=== PATIENT | female | born 1950 | race Caucasian/White ===

== ENCOUNTER 2023-11-01 07:43 | Emergency (ER) | payer MEDICARE ==
[~2023-11-01] VITALS: Ht 157.5 cm; Wt 54.4 kg
[2023-11-01 08:06] VITALS: BP 118/80; TEMP 98; O2SAT 99
== END 2023-11-01 08:07 | disposition home or self-care (01) ==
LOC: ER 07:51
DX: T16.9XXA Foreign body in ear, unspecified ear, initial encounter (principal); K21.9 Gastro-esophageal reflux disease without esophagitis; F41.9 Anxiety disorder, unspecified; Z88.1 Allergy status to other antibiotic agents; Y92.89 Other specified places as the place of occurrence of the external cause
CPT/HCPCS: A4606; A4663

== ENCOUNTER 2024-02-07 13:59 | Emergency (ER) | payer MEDICARE ==
[~2024-02-07] VITALS: Ht 157.5 cm; Wt 46.7 kg
[2024-02-07 14:52] LABS: BASOPHILS # (AUTO) 0.1 K/UL (0.0-0.2); BASOPHILS % (AUTO) 0.8 % (0.0-2.0); EOSINOPHILS % (AUTO) 0.2 % (0.0-7.0); HEMATOCRIT 42.2 % (31.2-41.9); LYMPHOCYTES # (AUTO) 1.9 K/uL (0.8-4.8); LYMPHOCYTES % (AUTO) 24.4 % (20.5-51.5); MEAN CORPUSCULAR HEMOGLOBIN 30.5 uug (24.7-32.8); MEAN CORPUSCULAR HGB CONC 33 g/dL (32.3-35.6); MEAN CORPUSCULAR VOLUME 91.8 fL (75.5-95.3); MONOCYTES # (AUTO) 0.3 K/uL (0.1-1.30); MONOCYTES % (AUTO) 3.5 % (0.0-11.0); NEUTROPHILS # (AUTO) 5.6 K/uL (1.8-8.9); NEUTROPHILS % (AUTO) 71.1 % (38.5-71.5); PLATELET COUNT (AUTO) 353 K/uL (179-408); RED BLOOD CELL COUNT(AUTO) 4.59 MIL/uL (3.63-4.92); RED CELL DISTRIBUTION WIDTH 13.5 % (12.3-17.7); WHITE BLOOD COUNT (AUTO) 7.8 K/uL (3.8-11.8)
[2024-02-07 15:10] LABS: DIFFERENTIAL COMMENT 1
[2024-02-07 15:15] LABS: ALANINE AMINOTRANSFERASE 17 U/L (14-59); ALBUMIN 4.1 g/dL (3.4-5.0); ALKALINE PHOSPHATASE 100 U/L (50-136); ASPARTATE AMINOTRANSFERASE 31 U/L (15-37); BILIRUBIN,DIRECT 0.1 mg/dL (0.0-0.2); BILIRUBIN,TOTAL 0.4 mg/dL (0.2-1.0); CALCIUM 8.9 mg/dL (8.5-10.1); CARBON DIOXIDE 24 mmol/L (21-32); CHLORIDE 105 mmol/L (98-107); CREATININE 0.8 mg/dL (0.6-1.3); GLUCOSE 113 mg/dL (74-106); SODIUM SERUM 142 mmol/L (136-145); TOTAL PROTEIN, SERUM 7.7 g/dL (6.4-8.2); UREA NITROGEN, BLOOD 17 mg/dL (7-18)
[2024-02-07 15:17] LABS: *BILIRUBIN,URIN NEGATIVE (NEGATIVE); *BLOOD, URINE NEGATIVE (NEGATIVE); *COLOR,URINE YELLOW (YELLOW); *KETONES,URINE NEGATIVE (NEGATIVE); *PROTEIN,URINE NEGATIVE (NEGATIVE); *UROBILINOGEN,URINE 0.2 E.U./dl (NORMAL); LEUKOCYTE ESTERASE ,URINE TRACE (NEGATIVE); NITRITE, URINE NEGATIVE (NEGATIVE); PH,URINE 6.5 (5.0-8.0); UGLUCOSE NEGATIVE (NEGATIVE)
[2024-02-07 15:22] LABS: *CLARITY,URINE HAZY (CLEAR)
[2024-02-07 15:25] LABS: BACTERIA,URINE FEW /HPF (NONE SEEN); SQUAMOUS EPITHELIAL CELL,UR FEW /HPF (NONE SEEN)
[2024-02-07 16:21] VITALS: BP 133/86; O2SAT 96
== END 2024-02-07 16:34 ==
LOC: ER 14:00
DX: S09.8XXA Other specified injuries of head, initial encounter (principal); R55 Syncope and collapse; K21.9 Gastro-esophageal reflux disease without esophagitis; Z20.822 Contact with and (suspected) exposure to COVID-19; Z88.1 Allergy status to other antibiotic agents; W18.39XA Other fall on same level, initial encounter; Y93.89 Activity, other specified; Y92.89 Other specified places as the place of occurrence of the external cause; Y99.8 Other external cause status
CPT/HCPCS: 36415; 70450; 71045; 72125; 83605; 84484; 85025; 85730; 87040; 93005; A4606; A4663

== ENCOUNTER 2024-02-16 16:36 | Emergency (ER) | payer MEDICARE ==
[~2024-02-16] VITALS: Ht 157.5 cm; Wt 46.7 kg
[2024-02-16 17:59] VITALS: BP 122/78; TEMP 97; O2SAT 99
== END 2024-02-16 17:59 | disposition home or self-care (01) ==
LOC: ER 16:38
DX: S00.83XA Contusion of other part of head, initial encounter (principal); K21.9 Gastro-esophageal reflux disease without esophagitis; R55 Syncope and collapse; Z88.2 Allergy status to sulfonamides; W18.39XA Other fall on same level, initial encounter; Y93.89 Activity, other specified; Y92.89 Other specified places as the place of occurrence of the external cause; Y99.8 Other external cause status
CPT/HCPCS: 70450; A4606; A4663

== ENCOUNTER 2024-02-24 06:56 | Emergency (ER) | payer MEDICARE ==
[~2024-02-24] VITALS: Ht 157.5 cm; Wt 45.4 kg
[2024-02-24 07:58] LABS: BASOPHILS # (AUTO) 0.1 K/UL (0.0-0.2); BASOPHILS % (AUTO) 0.9 % (0.0-2.0); EOSINOPHILS % (AUTO) 0.8 % (0.0-7.0); HEMATOCRIT 40.1 % (31.2-41.9); HEMOGLOBIN 13.7 g/dL (10.9-14.3); LYMPHOCYTES # (AUTO) 1.8 K/uL (0.8-4.8); MEAN CORPUSCULAR HEMOGLOBIN 31.5 uug (24.7-32.8); MEAN CORPUSCULAR HGB CONC 34 g/dL (32.3-35.6); MONOCYTES # (AUTO) 0.4 K/uL (0.1-1.30); MONOCYTES % (AUTO) 6.4 % (0.0-11.0); NEUTROPHILS # (AUTO) 3.9 K/uL (1.8-8.9); NEUTROPHILS % (AUTO) 62.9 % (38.5-71.5); PLATELET COUNT (AUTO) 383 K/uL (179-408); RED BLOOD CELL COUNT(AUTO) 4.36 MIL/uL (3.63-4.92); WHITE BLOOD COUNT (AUTO) 6.1 K/uL (3.8-11.8)
[2024-02-24 08:00] LABS: DIFFERENTIAL COMMENT 1
[2024-02-24 08:19] LABS: CALCIUM 9.3 mg/dL (8.5-10.1); CREATININE 0.8 mg/dL (0.6-1.3); POTASSIUM 3.9 mmol/L (3.5-5.1)
[2024-02-24 08:25] LABS: THYROID STIMULATING HORMONE 3.359 mIU/mL (0.358-3.740)
[2024-02-24 09:58] VITALS: BP 137/78; TEMP 98.3; O2SAT 97
== END 2024-02-24 09:59 | disposition home or self-care (01) ==
LOC: ER 07:07
DX: S09.8XXA Other specified injuries of head, initial encounter (principal); K21.9 Gastro-esophageal reflux disease without esophagitis; Z88.2 Allergy status to sulfonamides; W22.8XXA Striking against or struck by other objects, initial encounter; Y93.89 Activity, other specified; Y92.89 Other specified places as the place of occurrence of the external cause; Y99.8 Other external cause status
CPT/HCPCS: 36415; 70450; 84443; 85025; A4606; A4663

== ENCOUNTER 2024-03-21 16:29 | Emergency (ER) | payer MEDICARE, OTHER ==
[~2024-03-21] VITALS: Ht 152.4 cm; Wt 49.9 kg
[2024-03-21 16:32] VITALS: O2SAT 98
[2024-03-21] MEDS ORDERED: MIRT7.5T10 PO (16:52)
[2024-03-21] MEDS ORDERED: DIGO250T PO (16:52)
[2024-03-21] MEDS ORDERED: TRAZ-257 PO (16:52)
[2024-03-21] MEDS ORDERED: RAME8TAB24 PO (16:52)
[2024-03-21] MEDS ORDERED: FINA5TAB11 PO (16:52)
[2024-03-21] MEDS ORDERED: DARI7.5T17 PO (16:52)
[2024-03-21] MEDS ORDERED: ALPR0.5T8 PO (16:52)
[2024-03-21] MEDS ORDERED: CARB1TAB21 PO (16:52)
[2024-03-21] MEDS ORDERED: METO-356 PO (16:52)
== END 2024-03-21 17:49 | disposition home or self-care (01) ==
LOC: ER 16:34
DX: S30.0XXA Contusion of lower back and pelvis, initial encounter (principal); M75.31 Calcific tendinitis of right shoulder; K21.9 Gastro-esophageal reflux disease without esophagitis; Z79.899 Other long term (current) drug therapy; Z88.2 Allergy status to sulfonamides; W18.39XA Other fall on same level, initial encounter; Y93.89 Activity, other specified; Y92.89 Other specified places as the place of occurrence of the external cause; Y99.8 Other external cause status
CPT/HCPCS: 70450; 72125; 73020; 73502; 73560; A4606; A4663

== ENCOUNTER 2024-04-21 12:22 | Emergency (ER) | payer MEDICARE, OTHER ==
[~2024-04-21] VITALS: Ht 160 cm; Wt 45.8 kg
[~2024-04-21 12:22] MED LIST: ALPR0.5T8 PO; CARB1TAB21 PO; DARI7.5T17 PO; DIGO250T PO; FINA5TAB11 PO; METO-356 PO; MIRT7.5T10 PO; RAME8TAB24 PO; TRAZ-257 PO
[2024-04-21] MEDS ORDERED: ONDA4TAB5 PO (14:05)
[2024-04-21] MEDS ORDERED: ACET-2605 PO (14:07)
[2024-04-21 14:28] VITALS: BP 131/72; TEMP 98.2; O2SAT 97
== END 2024-04-21 15:12 | disposition home or self-care (01) ==
LOC: ER 12:22
DX: S00.83XA Contusion of other part of head, initial encounter (principal); K21.9 Gastro-esophageal reflux disease without esophagitis; Z79.1 Long term (current) use of non-steroidal anti-inflammatories (NSAID); Z79.899 Other long term (current) drug therapy; Z88.2 Allergy status to sulfonamides; W22.8XXA Striking against or struck by other objects, initial encounter; Y93.89 Activity, other specified; Y92.89 Other specified places as the place of occurrence of the external cause; Y99.8 Other external cause status
CPT/HCPCS: 70450; A4606; A4663

== ENCOUNTER 2024-05-16 17:09 | Emergency (ER) | payer MEDICARE, MEDICAID ==
[~2024-05-16] VITALS: Ht 157.5 cm; Wt 45.4 kg
[~2024-05-16 17:09] MED LIST changes: +ACET-2605 PO; +ONDA4TAB5 PO
[2024-05-16 17:32] LABS: *BILIRUBIN,URIN NEGATIVE (NEGATIVE); *BLOOD, URINE NEGATIVE (NEGATIVE); *CLARITY,URINE CLEAR (CLEAR); *COLOR,URINE YELLOW (YELLOW); *KETONES,URINE NEGATIVE (NEGATIVE); *PROTEIN,URINE NEGATIVE (NEGATIVE); *UROBILINOGEN,URINE 0.2 E.U./dl (NORMAL); NITRITE, URINE NEGATIVE (NEGATIVE); UGLUCOSE NEGATIVE (NEGATIVE)
[2024-05-16 17:39] LABS: LEUKOCYTE ESTERASE ,URINE 1+ (NEGATIVE); RBC,URINE 0-3 /HPF (0-3)
[2024-05-16 17:50] LABS: BASOPHILS # (AUTO) 0.1 K/UL (0.0-0.2); BASOPHILS % (AUTO) 0.7 % (0.0-2.0); EOSINOPHILS % (AUTO) 0.3 % (0.0-7.0); HEMATOCRIT 37.8 % (31.2-41.9); HEMOGLOBIN 12.5 g/dL (10.9-14.3); LYMPHOCYTES % (AUTO) 24.3 % (20.5-51.5); MEAN CORPUSCULAR HGB CONC 33 g/dL (32.3-35.6); MEAN CORPUSCULAR VOLUME 93.9 fL (75.5-95.3); MONOCYTES # (AUTO) 0.7 K/uL (0.1-1.30); MONOCYTES % (AUTO) 8.5 % (0.0-11.0); NEUTROPHILS # (AUTO) 5.4 K/uL (1.8-8.9); NEUTROPHILS % (AUTO) 66.2 % (38.5-71.5); PLATELET COUNT (AUTO) 360 K/uL (179-408); RED BLOOD CELL COUNT(AUTO) 4.03 MIL/uL (3.63-4.92); RED CELL DISTRIBUTION WIDTH 14.2 % (12.3-17.7); WHITE BLOOD COUNT (AUTO) 8.2 K/uL (3.8-11.8)
[2024-05-16 18:14] LABS: CALCIUM 9.5 mg/dL (8.5-10.1); CREATININE 0.8 mg/dL (0.6-1.3); POTASSIUM 3.9 mmol/L (3.5-5.1)
[2024-05-16 18:21] LABS: DIFFERENTIAL COMMENT 1
[2024-05-16 18:45] LABS: MAGNESIUM 2.1 mg/dL (1.8-2.4)
[2024-05-16] MEDS ORDERED: NITR100C6 PO (19:03)
[2024-05-16 19:08] VITALS: BP 129/71; O2SAT 97
== END 2024-05-16 19:08 | disposition home or self-care (01) ==
LOC: ER 17:10
DX: R35.0 Frequency of micturition (principal); N32.81 Overactive bladder; N39.0 Urinary tract infection, site not specified; K21.9 Gastro-esophageal reflux disease without esophagitis; Z79.1 Long term (current) use of non-steroidal anti-inflammatories (NSAID); Z79.899 Other long term (current) drug therapy; Z88.2 Allergy status to sulfonamides
CPT/HCPCS: 36415; 83735; 85025; A4606; A4663

== ENCOUNTER 2024-05-28 13:18 | Emergency (ER) | payer MEDICARE, MEDICAID ==
[~2024-05-28] VITALS: Ht 157.5 cm; Wt 46.7 kg
[~2024-05-28 13:18] MED LIST changes: +NITR100C6 PO
[2024-05-28] MEDS ORDERED: ATOR10TA PO (13:34)
[2024-05-28] MEDS ORDERED: METO25TA3 PO (13:34)
[2024-05-28] MEDS ORDERED: LIDOCAINE 5% PATCH TD ONE (13:57)
[2024-05-28] MEDS: LIDOCAINE 5% PATCH TD ONE (14:00)
[2024-05-28] MEDS ORDERED: LIDO30AD10 TP (14:06)
[2024-05-28 14:12] VITALS: BP 121/71; TEMP 98; O2SAT 96
== END 2024-05-28 14:12 | disposition home or self-care (01) ==
LOC: ER 13:19
DX: M43.6 Torticollis (principal); K21.9 Gastro-esophageal reflux disease without esophagitis; Z79.1 Long term (current) use of non-steroidal anti-inflammatories (NSAID); Z79.899 Other long term (current) drug therapy; Z88.2 Allergy status to sulfonamides
CPT/HCPCS: A4606; A4663

== ENCOUNTER 2024-06-05 14:56 | Emergency (ER) | payer MEDICARE, MEDICAID ==
[~2024-06-05] VITALS: Ht 157.5 cm; Wt 47.2 kg
[~2024-06-05 14:56] MED LIST changes: +ATOR10TA PO; -CARB1TAB21 PO; -DARI7.5T17 PO; -FINA5TAB11 PO; +LIDO30AD10 TP; -METO-356 PO; +METO25TA3 PO; -MIRT7.5T10 PO; -NITR100C6 PO; -ONDA4TAB5 PO; -RAME8TAB24 PO; -TRAZ-257 PO
[2024-06-05 15:03] VITALS: O2SAT 95
[2024-06-05] MEDS ORDERED: ONDA4TAB5 PO (15:08)
[2024-06-05 15:47] LABS: BASOPHILS # (AUTO) 0.1 K/UL (0.0-0.2); EOSINOPHILS # (AUTO) 0.1 K/uL (0.0-0.7); EOSINOPHILS % (AUTO) 1.2 % (0.0-7.0); HEMATOCRIT 37.8 % (31.2-41.9); HEMOGLOBIN 13.2 g/dL (10.9-14.3); LYMPHOCYTES # (AUTO) 1.7 K/uL (0.8-4.8); LYMPHOCYTES % (AUTO) 22.3 % (20.5-51.5); MEAN CORPUSCULAR HEMOGLOBIN 32.6 uug (24.7-32.8); MEAN CORPUSCULAR HGB CONC 35 g/dL (32.3-35.6); MEAN CORPUSCULAR VOLUME 93.8 fL (75.5-95.3); MONOCYTES # (AUTO) 0.6 K/uL (0.1-1.30); MONOCYTES % (AUTO) 7.5 % (0.0-11.0); NEUTROPHILS # (AUTO) 5.2 K/uL (1.8-8.9); PLATELET COUNT (AUTO) 351 K/uL (179-408); RED BLOOD CELL COUNT(AUTO) 4.03 MIL/uL (3.63-4.92); RED CELL DISTRIBUTION WIDTH 13.7 % (12.3-17.7); WHITE BLOOD COUNT (AUTO) 7.7 K/uL (3.8-11.8)
[2024-06-05 15:57] LABS: CALCIUM 9.4 mg/dL (8.5-10.1); CARBON DIOXIDE 28 mmol/L (21-32); CHLORIDE 107 mmol/L (98-107); CREATININE 0.8 mg/dL (0.6-1.3); GLUCOSE 139 mg/dL (74-106); SODIUM SERUM 143 mmol/L (136-145); UREA NITROGEN, BLOOD 21 mg/dL (7-18)
[2024-06-05 16:13] LABS: ALANINE AMINOTRANSFERASE 22 U/L (14-59); ALBUMIN 3.6 g/dL (3.4-5.0); ALKALINE PHOSPHATASE 59 U/L (50-136); ASPARTATE AMINOTRANSFERASE 29 U/L (15-37); BILIRUBIN,DIRECT 0.1 mg/dL (0.0-0.2); BILIRUBIN,TOTAL 0.2 mg/dL (0.2-1.0); NT-PRO BNP 53 pg/mL (0-125); TOTAL PROTEIN, SERUM 6.6 g/dL (6.4-8.2)
[2024-06-05] MEDS: IV NORMAL SALINE 500 ML BAG IV ONE (16:37)
== END 2024-06-05 18:02 | disposition left against medical advice (07) ==
LOC: ER 14:57
DX: R42 Dizziness and giddiness (principal); Z60.2 Problems related to living alone; Z79.899 Other long term (current) drug therapy; Z88.2 Allergy status to sulfonamides; Z88.0 Allergy status to penicillin
CPT/HCPCS: 36415; 84484; 85025; 93005; A4606; A4663

== ENCOUNTER 2024-06-11 22:08 | Emergency (ER) | payer MEDICARE, MEDICAID ==
[~2024-06-11] VITALS: Ht 157.5 cm; Wt 48.5 kg
[~2024-06-11 22:08] MED LIST changes: -DIGO250T PO; -LIDO30AD10 TP; +ONDA4TAB5 PO
--- NOTE | 2024-06-11 22:21 | NUR ---
at bedside for MSE
[2024-06-11] MEDS ORDERED: MELA10TA2 PO (22:35)
--- NOTE | 2024-06-11 22:40 | NUR ---
pt to CT via roberto
--- NOTE | 2024-06-11 22:50 | NUR ---
pt back from CT, x-ray tech at bedside
[2024-06-11] MEDS ORDERED: MELATONIN 3 MG TABLET ONE (23:48)
[2024-06-11] MEDS: MELATONIN 3 MG TABLET PO SCH (23:53)
--- NOTE | 2024-06-11 23:54 | NUR ---
Patient discharged to home in stable condition. Written and verbal after care instructions given. Patient verbalizes understanding of instructions. Stressed follow up or return to ER for worsening s/s.
[2024-06-11 23:55] VITALS: BP 117/71; TEMP 97.8; O2SAT 97
== END 2024-06-11 23:56 | disposition home or self-care (01) ==
LOC: ER 22:13
DX: S06.0X0A Concussion without loss of consciousness, initial encounter (principal); M79.605 Pain in left leg; Z79.1 Long term (current) use of non-steroidal anti-inflammatories (NSAID); Z79.899 Other long term (current) drug therapy; Z60.2 Problems related to living alone; Z88.2 Allergy status to sulfonamides; W18.39XA Other fall on same level, initial encounter; Y93.89 Activity, other specified; Y92.89 Other specified places as the place of occurrence of the external cause; Y99.8 Other external cause status
CPT/HCPCS: 70450; 73551; A4606; A4663

== ENCOUNTER 2024-06-16 22:44 | Inpatient (IN) | payer MEDICARE, MEDICAID ==
[~2024-06-16] VITALS: Ht 157.5 cm; Wt 49.0 kg
[~2024-06-16 22:44] MED LIST changes: +MELA10TA2 PO
[2024-06-16 23:49] LABS: BASOPHILS # (AUTO) 0.1 K/UL (0.0-0.2); BASOPHILS % (AUTO) 0.8 % (0.0-2.0); EOSINOPHILS # (AUTO) 0.1 K/uL (0.0-0.7); EOSINOPHILS % (AUTO) 1.4 % (0.0-7.0); HEMATOCRIT 35.7 % (31.2-41.9); HEMOGLOBIN 11.9 g/dL (10.9-14.3); LYMPHOCYTES # (AUTO) 1.7 K/uL (0.8-4.8); LYMPHOCYTES % (AUTO) 19.5 % (20.5-51.5); MEAN CORPUSCULAR HEMOGLOBIN 31.5 uug (24.7-32.8); MEAN CORPUSCULAR HGB CONC 33 g/dL (32.3-35.6); MEAN CORPUSCULAR VOLUME 94.5 fL (75.5-95.3); MONOCYTES # (AUTO) 0.7 K/uL (0.1-1.30); MONOCYTES % (AUTO) 7.6 % (0.0-11.0); NEUTROPHILS # (AUTO) 6.1 K/uL (1.8-8.9); NEUTROPHILS % (AUTO) 70.7 % (38.5-71.5); PLATELET COUNT (AUTO) 320 K/uL (179-408); RED BLOOD CELL COUNT(AUTO) 3.78 MIL/uL (3.63-4.92); WHITE BLOOD COUNT (AUTO) 8.6 K/uL (3.8-11.8)
[2024-06-16 23:57] LABS: CALCIUM 9.1 mg/dL (8.5-10.1); CARBON DIOXIDE 26 mmol/L (21-32); CHLORIDE 107 mmol/L (98-107); CREATININE 0.7 mg/dL (0.6-1.3); GLUCOSE 105 mg/dL (74-106); POTASSIUM 3.9 mmol/L (3.5-5.1); SODIUM SERUM 142 mmol/L (136-145); UREA NITROGEN, BLOOD 26 mg/dL (7-18)
[2024-06-17 00:03] LABS: ALANINE AMINOTRANSFERASE 30 U/L (14-59); ALBUMIN 3.6 g/dL (3.4-5.0); ALKALINE PHOSPHATASE 61 U/L (50-136); ASPARTATE AMINOTRANSFERASE 44 U/L (15-37); BILIRUBIN,TOTAL 0.4 mg/dL (0.2-1.0); TOTAL PROTEIN, SERUM 6.5 g/dL (6.4-8.2)
[2024-06-17] MEDS ORDERED: OXYCODONE/APAP 5-325 MG TABLET ONE (01:18)
[2024-06-17] MEDS ORDERED: ONDANSETRON ODT 4 MG TAB.RAPDIS ONE (01:18)
[2024-06-17] MEDS: OXYCODONE/APAP 5-325 MG TABLET PO ONE (01:22)
[2024-06-17] MEDS: ONDANSETRON ODT 4 MG TAB.RAPDIS SL ONE (01:24)
[2024-06-17 03:01] LABS: *BILIRUBIN,URIN NEGATIVE (NEGATIVE); *BLOOD, URINE NEGATIVE (NEGATIVE); *CLARITY,URINE CLEAR (CLEAR); *COLOR,URINE YELLOW (YELLOW); *KETONES,URINE NEGATIVE (NEGATIVE); *PROTEIN,URINE NEGATIVE (NEGATIVE); *UROBILINOGEN,URINE 0.2 E.U./dl (NORMAL); LEUKOCYTE ESTERASE ,URINE TRACE (NEGATIVE); NITRITE, URINE NEGATIVE (NEGATIVE); UGLUCOSE NEGATIVE (NEGATIVE)
[2024-06-17] MEDS ORDERED: REMEDY ESSENTIAL ZINC PASTE 113 GM TP PRN (04:15)
[2024-06-17 04:16] LABS: BACTERIA,URINE NONE SEEN /HPF (NONE SEEN); RBC,URINE NONE SEEN /HPF (0-3); SQUAMOUS EPITHELIAL CELL,UR FEW /HPF (NONE SEEN); WBC,URINE 0-3 /HPF (0-3)
[2024-06-17] MEDS ORDERED: ALPRAZOLAM 0.5 MG TABLET ONE (04:18)
[2024-06-17] MEDS: ALPRAZOLAM 0.25 MG TABLET PO ONE (04:20)
[2024-06-17] MEDS: ACETAMINOPHEN 325 MG TABLET PO PRN (06:49)
[2024-06-17] MEDS: PANTOPRAZOLE SODIUM 40 MG TABLET.DR PO SCH (06:49)
[2024-06-17 06:57] VITALS: BP 120/69; TEMP 97.8
[2024-06-17 07:13] LABS: BASOPHILS # (AUTO) 0.1 K/UL (0.0-0.2); BASOPHILS % (AUTO) 0.8 % (0.0-2.0); EOSINOPHILS # (AUTO) 0.1 K/uL (0.0-0.7); EOSINOPHILS % (AUTO) 1.5 % (0.0-7.0); HEMATOCRIT 36.4 % (31.2-41.9); HEMOGLOBIN 12.3 g/dL (10.9-14.3); LYMPHOCYTES # (AUTO) 1.2 K/uL (0.8-4.8); LYMPHOCYTES % (AUTO) 17.8 % (20.5-51.5); MEAN CORPUSCULAR HEMOGLOBIN 31.8 uug (24.7-32.8); MEAN CORPUSCULAR HGB CONC 34 g/dL (32.3-35.6); MEAN CORPUSCULAR VOLUME 94.2 fL (75.5-95.3); MONOCYTES # (AUTO) 0.5 K/uL (0.1-1.30); MONOCYTES % (AUTO) 7.5 % (0.0-11.0); NEUTROPHILS % (AUTO) 72.4 % (38.5-71.5); PLATELET COUNT (AUTO) 318 K/uL (179-408); RED BLOOD CELL COUNT(AUTO) 3.86 MIL/uL (3.63-4.92); RED CELL DISTRIBUTION WIDTH 13.6 % (12.3-17.7); WHITE BLOOD COUNT (AUTO) 6.9 K/uL (3.8-11.8)
[2024-06-17 07:21] LABS: DIFFERENTIAL COMMENT 1
[2024-06-17 07:35] LABS: THYROID STIMULATING HORMONE 3.477 mIU/mL (0.358-3.740)
[2024-06-17 07:39] LABS: ALANINE AMINOTRANSFERASE 28 U/L (14-59); ALBUMIN 3.6 g/dL (3.4-5.0); ALKALINE PHOSPHATASE 61 U/L (50-136); ASPARTATE AMINOTRANSFERASE 39 U/L (15-37); BILIRUBIN,DIRECT 0.2 mg/dL (0.0-0.2); BILIRUBIN,TOTAL 0.6 mg/dL (0.2-1.0); CALCIUM 9.1 mg/dL (8.5-10.1); CARBON DIOXIDE 28 mmol/L (21-32); CHLORIDE 107 mmol/L (98-107); CREATININE 0.7 mg/dL (0.6-1.3); GLUCOSE 92 mg/dL (74-106); MAGNESIUM 2.1 mg/dL (1.8-2.4); PHOSPHOROUS 3.8 mg/dL (2.5-4.9); POTASSIUM 3.7 mmol/L (3.5-5.1); SODIUM SERUM 144 mmol/L (136-145); TOTAL PROTEIN, SERUM 6.8 g/dL (6.4-8.2); UREA NITROGEN, BLOOD 19 mg/dL (7-18)
[2024-06-17 10:56] VITALS: BP 109/57; TEMP 98.3; O2SAT 96
[2024-06-17] MEDS ORDERED: ATOR20TA PO (11:35)
[2024-06-17] MEDS ORDERED: MIRT7.5T10 PO (11:35)
[2024-06-17] MEDS ORDERED: ALPR0.5T8 PO (11:35)
[2024-06-17] MEDS ORDERED: FINA5TAB11 PO (11:35)
[2024-06-17] MEDS: diphenhydrAMINE 50 MG/1 ML VIAL IV ONE (11:57)
[2024-06-17] MEDS: METOCLOPRAMIDE HCL 10 MG/2 ML VIAL IV ONE (11:57)
[2024-06-17] MEDS: CIPROFLOXACIN HCL 250 MG TABLET PO SCH (12:40)
[2024-06-17] MEDS ORDERED: ALPRAZOLAM 0.5 MG TABLET PO PRN (13:00)
[2024-06-17] MEDS: METRONIDAZOLE 500 MG TABLET PO SCH (13:05)
[2024-06-17] MEDS: NEOMY/BACITRAC/POLYMI OINT 28.35 GM TUBE TOP SCH (13:06)
[2024-06-17 15:24] VITALS: BP 137/66; TEMP 99.1; O2SAT 97
[2024-06-17] MEDS: ALPRAZOLAM 0.25 MG TABLET PO PRN (15:26)
[2024-06-17 19:00] VITALS: BP 122/61; TEMP 98; O2SAT 99
[2024-06-17 20:00] VITALS: BP_SYST 116; BP_SYST 130; BP_DIAS 64; BP_DIAS 70; TEMP 98.5; TEMP 98.7; O2SAT 100; O2SAT 97
[2024-06-17] MEDS: ALPRAZOLAM 0.5 MG TABLET PO PRN (20:34)
[2024-06-17] MEDS: SENNOSIDES 1 TABLET PO SCH (20:34)
[2024-06-17] MEDS: ATORVASTATIN 20 MG TABLET PO SCH (20:34)
[2024-06-17] MEDS: MIRTAZAPINE 15 MG TABLET PO SCH (20:34)
[2024-06-17] MEDS: HEPARIN SODIUM,PORCINE 5,000 UNITS/ML VIAL SQ SCH (20:36)
[2024-06-17] MEDS: MAGNESIUM HYDROXIDE 30 ML LIQUID UDC PO PRN (22:02)
[2024-06-18] VITALS: BP 141/65; TEMP 100.9; O2SAT 95
[2024-06-18] MEDS ORDERED: ONDANSETRON 4 MG/2 ML VIAL IV PRN (00:45)
[2024-06-18] MEDS: ONDANSETRON ODT 4 MG TAB.RAPDIS SL PRN (01:19)
[2024-06-18] MEDS: TRAMADOL HCL 50 MG TABLET PO PRN (02:21)
[2024-06-18 07:05] LABS: BASOPHILS # (AUTO) 0.1 K/UL (0.0-0.2); BASOPHILS % (AUTO) 1.1 % (0.0-2.0); EOSINOPHILS % (AUTO) 0.5 % (0.0-7.0); HEMATOCRIT 38.8 % (31.2-41.9); HEMOGLOBIN 12.8 g/dL (10.9-14.3); LYMPHOCYTES # (AUTO) 1.3 K/uL (0.8-4.8); MEAN CORPUSCULAR HEMOGLOBIN 31.2 uug (24.7-32.8); MEAN CORPUSCULAR HGB CONC 33 g/dL (32.3-35.6); MEAN CORPUSCULAR VOLUME 94.5 fL (75.5-95.3); MONOCYTES # (AUTO) 0.7 K/uL (0.1-1.30); MONOCYTES % (AUTO) 11.3 % (0.0-11.0); NEUTROPHILS # (AUTO) 4.2 K/uL (1.8-8.9); NEUTROPHILS % (AUTO) 66.1 % (38.5-71.5); PLATELET COUNT (AUTO) 300 K/uL (179-408); RED CELL DISTRIBUTION WIDTH 13.5 % (12.3-17.7); WHITE BLOOD COUNT (AUTO) 6.3 K/uL (3.8-11.8)
[2024-06-18 07:43] LABS: DIFFERENTIAL COMMENT 1
[2024-06-18 07:49] LABS: CALCIUM 9.1 mg/dL (8.5-10.1); CARBON DIOXIDE 27 mmol/L (21-32); CHLORIDE 106 mmol/L (98-107); CREATININE 0.9 mg/dL (0.6-1.3); GLUCOSE 110 mg/dL (74-106); MAGNESIUM 2.4 mg/dL (1.8-2.4); PHOSPHOROUS 3.6 mg/dL (2.5-4.9); POTASSIUM 3.8 mmol/L (3.5-5.1); SODIUM SERUM 141 mmol/L (136-145); UREA NITROGEN, BLOOD 15 mg/dL (7-18)
[2024-06-18 07:58] VITALS: BP 121/72; TEMP 97.5; O2SAT 97
[2024-06-18 08:00] VITALS: BP 114/63; TEMP 98.1; O2SAT 93
[2024-06-18] MEDS: prednisoLONE ACET 1% OPHT DROP 5 ML BOTTLE RIGHTEYE SCH (08:33)
[2024-06-18] MEDS: MIRALAX 17 GM POWD.PACK PO SCH (08:33)
[2024-06-18] MEDS: FINASTERIDE 5 MG TABLET PO SCH (08:33)
[2024-06-18 11:46] VITALS: BP 121/70; TEMP 97; O2SAT 93
[2024-06-18 16:00] VITALS: BP 100/64; TEMP 98.1; O2SAT 95
[2024-06-19] VITALS (10 sets, daily range): BP systolic 106–136; BP diastolic 63–77; TEMP 98–99; O2SAT 95–96
[2024-06-19 07:36] LABS: BASOPHILS % (AUTO) 0.7 % (0.0-2.0); EOSINOPHILS % (AUTO) 0.2 % (0.0-7.0); HEMOGLOBIN 12.1 g/dL (10.9-14.3); LYMPHOCYTES # (AUTO) 1.6 K/uL (0.8-4.8); LYMPHOCYTES % (AUTO) 22.4 % (20.5-51.5); MEAN CORPUSCULAR HEMOGLOBIN 31.5 uug (24.7-32.8); MEAN CORPUSCULAR HGB CONC 34 g/dL (32.3-35.6); MEAN CORPUSCULAR VOLUME 93.9 fL (75.5-95.3); MONOCYTES # (AUTO) 0.7 K/uL (0.1-1.30); MONOCYTES % (AUTO) 9.6 % (0.0-11.0); NEUTROPHILS # (AUTO) 4.7 K/uL (1.8-8.9); NEUTROPHILS % (AUTO) 67.1 % (38.5-71.5); PLATELET COUNT (AUTO) 329 K/uL (179-408); RED BLOOD CELL COUNT(AUTO) 3.84 MIL/uL (3.63-4.92); RED CELL DISTRIBUTION WIDTH 13.4 % (12.3-17.7)
[2024-06-19 07:54] LABS: DIFFERENTIAL COMMENT 1
[2024-06-19 07:55] LABS: CALCIUM 8.4 mg/dL (8.5-10.1); CARBON DIOXIDE 29 mmol/L (21-32); CHLORIDE 102 mmol/L (98-107); CREATININE 0.8 mg/dL (0.6-1.3); GLUCOSE 108 mg/dL (74-106); MAGNESIUM 2.2 mg/dL (1.8-2.4); PHOSPHOROUS 3.4 mg/dL (2.5-4.9); POTASSIUM 3.8 mmol/L (3.5-5.1); SODIUM SERUM 138 mmol/L (136-145); UREA NITROGEN, BLOOD 11 mg/dL (7-18)
[2024-06-19] MEDS: MUPIROCIN 2% OINT 22 GM TUBE NS SCH (09:55)
[2024-06-19] MEDS: IV LACTATED RINGERS SOLUTION 1,000 ML IV PRN (18:51)
[2024-06-20] VITALS: BP 106/67; TEMP 98.1; O2SAT 96
[2024-06-20 04:37] VITALS: BP 127/77; TEMP 98; O2SAT 96
[2024-06-20 07:13] LABS: BASOPHILS # (AUTO) 0.1 K/UL (0.0-0.2); BASOPHILS % (AUTO) 0.8 % (0.0-2.0); EOSINOPHILS % (AUTO) 0.5 % (0.0-7.0); HEMATOCRIT 36.6 % (31.2-41.9); HEMOGLOBIN 12.3 g/dL (10.9-14.3); LYMPHOCYTES # (AUTO) 1.5 K/uL (0.8-4.8); LYMPHOCYTES % (AUTO) 23.1 % (20.5-51.5); MEAN CORPUSCULAR HEMOGLOBIN 31.5 uug (24.7-32.8); MEAN CORPUSCULAR HGB CONC 34 g/dL (32.3-35.6); MEAN CORPUSCULAR VOLUME 93.5 fL (75.5-95.3); MONOCYTES # (AUTO) 0.7 K/uL (0.1-1.30); MONOCYTES % (AUTO) 11.5 % (0.0-11.0); NEUTROPHILS # (AUTO) 4.2 K/uL (1.8-8.9); NEUTROPHILS % (AUTO) 64.1 % (38.5-71.5); PLATELET COUNT (AUTO) 338 K/uL (179-408); RED BLOOD CELL COUNT(AUTO) 3.91 MIL/uL (3.63-4.92); RED CELL DISTRIBUTION WIDTH 13.6 % (12.3-17.7); WHITE BLOOD COUNT (AUTO) 6.5 K/uL (3.8-11.8)
[2024-06-20 07:34] LABS: DIFFERENTIAL COMMENT 1
[2024-06-20 07:36] VITALS: BP 134/71; TEMP 98.5; O2SAT 95
[2024-06-20 08:17] LABS: CALCIUM 8.9 mg/dL (8.5-10.1); CARBON DIOXIDE 27 mmol/L (21-32); CHLORIDE 105 mmol/L (98-107); CREATININE 0.7 mg/dL (0.6-1.3); GLUCOSE 111 mg/dL (74-106); PHOSPHOROUS 3.2 mg/dL (2.5-4.9); POTASSIUM 3.9 mmol/L (3.5-5.1); SODIUM SERUM 141 mmol/L (136-145); UREA NITROGEN, BLOOD 14 mg/dL (7-18)
[2024-06-20 11:37] VITALS: BP 136/61; TEMP 98.3; O2SAT 94
[2024-06-20] MEDS: PREGABALIN 25 MG CAPSULE PO SCH (12:22)
[2024-06-20 15:36] VITALS: BP 126/70; TEMP 96; O2SAT 94
[2024-06-20 20:00] VITALS: BP 119/74; TEMP 97.3; O2SAT 95
[2024-06-20] MEDS: HALOPERIDOL 0.5 MG TABLET PO SCH (21:24)
[2024-06-21] VITALS: BP 138/83; TEMP 98.2; O2SAT 95
[2024-06-21 04:00] VITALS: BP 126/72; TEMP 97.6; O2SAT 94
[2024-06-21 08:00] VITALS: BP 139/81; TEMP 97.8; O2SAT 96
[2024-06-21] MEDS: LIDOCAINE 5% PATCH TD SCH (09:53)
[2024-06-21 12:00] VITALS: BP 123/73; TEMP 97.8
[2024-06-21 16:00] VITALS: BP 129/58; TEMP 97.8; O2SAT 97
[2024-06-22 04:00] VITALS: BP 151/72; TEMP 98; O2SAT 97
[2024-06-22 07:33] LABS: BASOPHILS % (AUTO) 0.8 % (0.0-2.0); EOSINOPHILS % (AUTO) 0.6 % (0.0-7.0); HEMATOCRIT 40.6 % (31.2-41.9); HEMOGLOBIN 13.4 g/dL (10.9-14.3); LYMPHOCYTES # (AUTO) 1.6 K/uL (0.8-4.8); LYMPHOCYTES % (AUTO) 26.2 % (20.5-51.5); MEAN CORPUSCULAR HEMOGLOBIN 31.3 uug (24.7-32.8); MEAN CORPUSCULAR HGB CONC 33 g/dL (32.3-35.6); MEAN CORPUSCULAR VOLUME 94.5 fL (75.5-95.3); MONOCYTES # (AUTO) 0.5 K/uL (0.1-1.30); MONOCYTES % (AUTO) 7.7 % (0.0-11.0); NEUTROPHILS # (AUTO) 3.8 K/uL (1.8-8.9); NEUTROPHILS % (AUTO) 64.7 % (38.5-71.5); PLATELET COUNT (AUTO) 379 K/uL (179-408); RED BLOOD CELL COUNT(AUTO) 4.29 MIL/uL (3.63-4.92); RED CELL DISTRIBUTION WIDTH 13.8 % (12.3-17.7); WHITE BLOOD COUNT (AUTO) 5.9 K/uL (3.8-11.8)
[2024-06-22 07:52] LABS: CALCIUM 9.3 mg/dL (8.5-10.1); CARBON DIOXIDE 28 mmol/L (21-32); CHLORIDE 105 mmol/L (98-107); CREATININE 0.9 mg/dL (0.6-1.3); GLUCOSE 126 mg/dL (74-106); POTASSIUM 3.7 mmol/L (3.5-5.1); SODIUM SERUM 143 mmol/L (136-145); UREA NITROGEN, BLOOD 17 mg/dL (7-18)
[2024-06-22 07:54] LABS: DIFFERENTIAL COMMENT 1
[2024-06-22 08:00] VITALS: BP 143/60; TEMP 97.9; O2SAT 96
[2024-06-22 12:00] VITALS: BP 140/68; TEMP 97.6; O2SAT 98
[2024-06-22] MEDS ORDERED: MIRT-93 PO (12:03)
[2024-06-22] MEDS ORDERED: MUPI22OI2 NS (12:03)
[2024-06-22] MEDS ORDERED: SENN-175 PO (12:03)
[2024-06-22] MEDS ORDERED: CIPR250T4 PO (12:03)
[2024-06-22] MEDS ORDERED: POLY17PO4 PO (12:03)
[2024-06-22] MEDS ORDERED: ACID1TAB4 PO (12:03)
[2024-06-22] MEDS ORDERED: METR500T PO (12:03)
[2024-06-22] MEDS ORDERED: Neomy/Bacitrac/Polymi Oint TOP (12:03)
[2024-06-22] MEDS ORDERED: LIDO30AD10 TD (12:03)
[2024-06-22] MEDS ORDERED: HEPA50007 SQ (12:03)
[2024-06-22] MEDS ORDERED: PRED5DRO4 RIGHTEYE (12:03)
[2024-06-22] MEDS ORDERED: HALO0.5T6 PO (12:03)
[2024-06-22] MEDS ORDERED: PANT40TA49 PO (12:03)
[2024-06-22] MEDS ORDERED: PREG25CA PO (12:03)
[2024-06-22] MEDS ORDERED: ALPR0.25 PO (12:03)
[2024-06-22] MEDS ORDERED: ACIDOPHILUS/BULGARICUS CHEW TAB PO SCH (21:00)
== END 2024-06-22 16:35 | DRG 73 ==
LOC: ER 22:48 → MEDSURG3 06-17 03:48 → TELE3 06-17 13:01 → MEDSURG3 06-21 09:15
PROVIDERS: ADMIT Nurse Practitioner Family; ATTEND Nurse Practitioner Family
DX: G90.8 Other disorders of autonomic nervous system (principal); U07.1 COVID-19; S22.31XA Fracture of one rib, right side, initial encounter for closed fracture; M48.54XA Collapsed vertebra, not elsewhere classified, thoracic region, initial encounter for fracture; M84.454A Pathological fracture, pelvis, initial encounter for fracture; N39.0 Urinary tract infection, site not specified; K57.32 Diverticulitis of large intestine without perforation or abscess without bleeding; R29.6 Repeated falls; S30.810A Abrasion of lower back and pelvis, initial encounter; W06.XXXA Fall from bed, initial encounter; Z85.118 Personal history of other malignant neoplasm of bronchus and lung; Z96.642 Presence of left artificial hip joint; E86.0 Dehydration; B96.89 Other specified bacterial agents as the cause of diseases classified elsewhere; Z22.322 Carrier or suspected carrier of Methicillin resistant Staphylococcus aureus; G89.29 Other chronic pain; E78.5 Hyperlipidemia, unspecified; Z79.899 Other long term (current) drug therapy; Z98.82 Breast implant status; Z88.0 Allergy status to penicillin; Z87.891 Personal history of nicotine dependence; I10 Essential (primary) hypertension; K59.00 Constipation, unspecified; R79.89 Other specified abnormal findings of blood chemistry; R33.9 Retention of urine, unspecified; Z78.1 Physical restraint status
CPT/HCPCS: 36415; 70450; 71250; 73080; 73700; 83735; 84100; 84443; 84484; 85025; 87040; 93307; A4606; A6213; C1758; G0378; J1200; J1644; J2650; J2765; Q0162